=== PATIENT | male | born 1945 | race Caucasian/White ===

== ENCOUNTER 2025-02-04 11:21 | Emergency (ER) | payer MEDICARE ==
[~2025-02-04] VITALS: Wt 104.3 kg
[2025-02-04 12:36] LABS: BASO # 0.0 10*3/uL (0.0-0.1); BASO % 0.3 % (0.0-1.0); EOS # 0.2 10*3/uL (0.0-0.4); EOS % 1.8 % (1.0-4.0); MEAN CELL VOLUME 92.9 fl (80.0-94.0); MEAN CORPUSCULAR HGB 30.6 pg (27.0-31.0); MEAN PLATELET VOLUME 9.1 fl (9.6-12.3); MONO # 1.2 10*3/uL (0.1-1.0); MONO % 12.1 % (3.0-9.0); NEUT # 6.6 10*3/uL (2.3-7.9); NEUT % 69.3 % (47.0-73.0); NUCLEATED RED BLOOD CELL 0.0 % (0.0-0.0); NUCLEATED RED BLOOD CELL 0.0 10*3/uL (0.0-0.0); PLATELET COUNT AUTOMATED 371 10*3/uL (130-400); RED CELL DISTRI WIDTH 16.6 % (0-14.5)
[2025-02-04 12:57] LABS: BUN 18 mg/dl (9-23)
[2025-02-04] MEDS ORDERED: PREDNISONE20 M1 PO (13:24)
[2025-02-04] MEDS ORDERED: CEPHALEXIN500 M1 PO (13:24)
== END 2025-02-04 13:46 | disposition home or self-care (01) ==
LOC: ED 11:21
PROVIDERS: Nurse Practitioner Family
DX: M10.9 Gout, unspecified (principal)